=== PATIENT | male | born 1975 | race African-American/Black ===

== ENCOUNTER 2020-11-23 12:40 | Emergency (ER) | payer OTHER ==
[~2020-11-23] VITALS: Ht 172.7 cm; Wt 68.0 kg
[2020-11-23 13:22] LABS: ABSOLUTE NEUTROPHILS 6.4 thou/uL (1.4-8.2); BASOPHILS 0.8 % (0.0-2.0); EOSINOPHILS 2.8 % (0.0-3.0); HEMATOCRIT 38.9 % (42.0-52.0); HEMOGLOBIN 13.8 gm/dL (14.0-18.0); LYMPHOCYTES 17.9 % (24.0-44.0); MCH 32.6 pg (26.0-34.0); MCHC 35.6 g/dL (28.0-37.0); MCV 91.7 fL (80.0-100.0); MONOCYTES 3.9 % (1.0-8.0); PLATELET COUNT 300 thou/uL (150-400); POLYS 74.6 % (36.0-66.0); RBC 4.24 mil/uL (4.50-6.00); RDW 12.8 % (10.5-14.5); WBC 8.6 thou/uL (4.0-11.0)
[2020-11-23 13:25] LABS: CALCIUM 8.8 mg/dL (8.5-10.1); POTASSIUM 3.3 mmol/L (3.5-5.1)
[2020-11-23 13:31] LABS: ALBUMIN 3.6 g/dL (3.4-5.0); TOTAL BILIRUBIN 0.4 mg/dL (0.2-1.0); TOTAL PROTEIN 7.1 g/dL (6.4-8.2)
[2020-11-23 13:43] LABS: URINE BILIRUBIN NEGATIVE (Negative); URINE BLOOD TRACE (Negative); URINE CLARITY CLEAR; URINE COLOR YELLOW; URINE GLUCOSE-RANDOM* NEGATIVE (Negative); URINE KETONES NEGATIVE (Negative); URINE LEUKOCYTES-REFLEX NEGATIVE (Negative); URINE NITRITE-REFLEX NEGATIVE (Negative); URINE PROTEIN (DIPSTICK) NEGATIVE (Negative); URINE UROBILINOGEN 0.2 E.U./dl (0.2-1.0)
[2020-11-23] MEDS ORDERED: PREDNISONE 10 M10 M1 PO (17:36)
[2020-11-23 18:03] VITALS: BP 138/91
== END 2020-11-23 18:03 | disposition home or self-care (01) ==
LOC: ER 12:40
PROVIDERS: Physician Assistant
DX: N50.812 Left testicular pain (principal); N50.811 Right testicular pain; N43.3 Hydrocele, unspecified; R21 Rash and other nonspecific skin eruption

== ENCOUNTER 2021-04-20 14:50 | Emergency (ER) | payer OTHER ==
[~2021-04-20] VITALS: Ht 172.7 cm; Wt 63.5 kg
[~2021-04-20 14:50] MED LIST: PREDNISONE 10 M10 M1 PO
[2021-04-20] MEDS ORDERED: CORTISPORIN OTI10 M2 OTIC (16:54)
[2021-04-20] MEDS ORDERED: IBUPROFEN 800800 M1 PO (16:54)
[2021-04-20 17:46] VITALS: BP 108/69
== END 2021-04-20 17:47 | disposition home or self-care (01) ==
LOC: ER 14:50
DX: U07.1 COVID-19 (principal); H92.03 Otalgia, bilateral; Z79.899 Other long term (current) drug therapy